=== PATIENT | male | born 1970 | race Two or more races ===

== ENCOUNTER 2022-07-12 04:35 | Day surgery (SDC) | payer OTHER ==
[2022-07-08 07:22] VITALS: BMI 28.2
[2022-07-12] MEDS ORDERED: ACETAMINOPHEN 325 MG TABLET (FP) PO PRN (08:14)
[2022-07-12] MEDS ORDERED: LACTATED RINGERS SOLUTION 1,000 ML IV SCH (08:15)
[2022-07-12 09:08] VITALS: TEMP 98.4
[2022-07-12 09:46] VITALS: BP 127/84; PULSE 67; RESP 14
== END 2022-07-12 10:16 | disposition home or self-care (01) ==
LOC: JASU-ENDO 04:35
PROVIDERS: ATTEND Internal Medicine Gastroenterology
PROC: 0DBN8ZX Excision of Sigmoid Colon, Via Natural or Artificial Opening Endoscopic, Diagnostic (ICD-10-PCS; principal; 2022-07-12 08:45)
DX: Z12.11 Encounter for screening for malignant neoplasm of colon (principal); K63.5 Polyp of colon; K64.8 Other hemorrhoids
CPT/HCPCS: 88305-TC